=== PATIENT | female | born 1940 | race Caucasian/White ===

== ENCOUNTER → 2018-01-30 | Outpatient (CLI) | payer OTHER ==
[~2018-01-30] MED LIST: ADVIN25/60 INH; ASPI81TA28 PO; ERYT250T PO; OXGN; PANT40TA PO; PRAV40TA PO; PRED-301 PO; SPRIN/30 INH; VNTHFA/IN INH; ZOLP5TAB6 PO
== END | disposition home or self-care (01) ==
LOC: C.LAB 08:47
PROVIDERS: ATTEND Urology
DX: Z01.818 Encounter for other preprocedural examination (principal); C67.9 Malignant neoplasm of bladder, unspecified